=== PATIENT | male | born 1940 | race Caucasian/White ===

== ENCOUNTER 2016-10-26 14:54 | Inpatient (IN) | payer MEDICARE, BC ==
[2016-10-26] MEDS ORDERED: ZOLPIDEM 10 MG TAB PO PRN (18:48)
[2016-10-26] MEDS ORDERED: WARFARIN 2.5 MG TAB PO SCH (19:00)
[2016-10-26 19:44] LABS: Anisocytosis Slight; Basophils % (A) 1 %; CH 28.8; CHCM 31.7; Eosinophils % (A) 1 %; HCT 34.3 % (39.0-53.0); HDW 2.42; HGB 10.8 gm/dL (13.0-17.5); Luc # (Auto) 0.09; Luc % (Auto) 2; Lymphocytes # (A) 0.8 k/uL (1.0-4.8); Lymphocytes % (A) 14 %; MCH 28.7 pg (25.0-35.0); MCHC 31.5 g/dL (31.0-37.0); Mean Platelet Volume 8.9; Monocytes # (A) 0.4 k/uL (0-1.0); Monocytes % (A) 7 %; Neutrophils # (A) 4.6 k/uL (1.3-7.7); Neutrophils % (A) 77 %; RBC 3.77 m/uL (4.30-5.90); RDW 16.1 % (11.5-15.5); WBC (Perox) 6.23
[2016-10-26 19:53] LABS: Calcium 8.7 mg/dL (8.4-10.2); Potassium 3.9 mmol/L (3.5-5.1)
[2016-10-26 19:54] LABS: Prothrombin Time 28.9 sec (9.0-12.0)
[2016-10-26] MEDS ORDERED: CARVEDILOL 6.25 MG TAB PO STA (21:25)
[2016-10-26] MEDS ORDERED: VIT A,C & E-LUTEIN-MINERALS 1 EACH TAB PO ONE (22:11)
[2016-10-26] MEDS: CARVEDILOL 3.125 MG TAB PO SCH (22:25)
[2016-10-27] MEDS: CARVEDILOL 3.125 MG TAB PO SCH (06:24)
[2016-10-27 06:35] LABS: Anisocytosis Slight; Basophils % (A) 0 %; CH 28.7; CHCM 31.9; Eosinophils # (A) 0.1 k/uL (0-0.7); Eosinophils % (A) 1 %; HCT 36.2 % (39.0-53.0); HDW 2.46; HGB 11.5 gm/dL (13.0-17.5); Luc # (Auto) 0.07; Luc % (Auto) 1; Lymphocytes % (A) 14 %; MCH 28.7 pg (25.0-35.0); MCHC 31.8 g/dL (31.0-37.0); MCV 90.4 fL (80.0-100.0); Mean Platelet Volume 9.1; Monocytes # (A) 0.4 k/uL (0-1.0); Monocytes % (A) 6 %; Neutrophils # (A) 5.3 k/uL (1.3-7.7); Neutrophils % (A) 77 %; RBC 4.01 m/uL (4.30-5.90); RDW 16.1 % (11.5-15.5); WBC 6.9 k/uL (3.8-10.6); WBC (Perox) 7.28
[2016-10-27] MEDS ORDERED: DEXTROSE 5% IN WATER 100 ML with AMIODARONE 150 MG IV ONE (06:38)
[2016-10-27 06:40] LABS: INR 3.3 (<1.1); Prothrombin Time 31.6 sec (9.0-12.0)
[2016-10-27 07:03] LABS: Calcium 9.3 mg/dL (8.4-10.2); Potassium 4.5 mmol/L (3.5-5.1)
[2016-10-27] MEDS: AMIODARONE 450 MG in DEXTROSE 5% IN WATER 250 ML IV SCH ×4 (07:27→15:45)
[2016-10-27] MEDS ORDERED: CARVEDILOL 6.25 MG TAB PO SCH (07:30)
[2016-10-27] MEDS ORDERED: ALPRAZolam 0.5 MG TAB PO PRN (08:25)
--- NOTE | 2016-10-27 09:05 | XR ---
EXAMINATION TYPE: XR chest 1V DATE OF EXAM: 10/27/2016 8:59 AM COMPARISON: 07/13/2016 HISTORY: 76-year-old male with shortness of breath TECHNIQUE: Single frontal view of the chest is obtained. FINDINGS: There is moderate cardiomegaly. Diffuse interstitial opacities are noted, relatively similar to prior . No significant pleural effusion seen. Left anterior chest wall AICD generator with right atrial, ri ght ventricular, and coronary sinus leads. IMPRESSION: Similar moderate cardiomegaly. Diffuse interstitial changes appear in part chronic. Correlate for mil d CHF.
[2016-10-27] MEDS ORDERED: FUROSEMIDE 10 MG/ML 2 ML VIAL IV SCH (09:15)
[2016-10-27 10:09] VITALS: TEMP 96.7
--- NOTE | 2016-10-27 10:58 | P.CRDCN ---
History of Present Illness Consult date: 10/27/16 Reason for Consult (text): CHF/fainting spells Chief complaint: passing out and difficulty breathing History of present illness: This is a pleasant 76-year-old gentleman who follows regularly with Dr. Soni in the office. He has a known history of nonischemic cardiomyopathy , severe mitral regurgitation, systolic congestive heart failure, hyperlipidemia , rheumatoid arthritis, hypertension, chronic kidney disease, paroxysmal atrial fibrillation, and prior BiV ICD placement. He was recently admitted to [facility] on 09/19/2016 through 09/29/2016 for nonischemic myopathy and severe mitral regurgitation; is not a surgical candidate. Patient was brought to the emergency department at [facility] by his with complaints of syncope and progressively worsening shortness of breath. Chest x-ray done upon presentation to Dr. Carson showed cardiomegaly with mild congestive changes in the peripheral lungs, patient did undergo computed tomography scan of the head without contrast that showed no acute abnormality and no hemorrhage. Laboratory values were significant for a proBNP of 32,735, most recent BUN 41 and creatinine 1.74 and INR of 3.3. Since arriving to selective care unit, patient has been having runs of ventricular tachycardia treated with ATP and has been started on amiodarone drip. Upon examination this morning, patient is restless and tachypneic. Denies complaints of chest discomfort or palpitations. He does complain of severe shortness of breath and episodes of dizziness. Complaining of orthopnea. 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 -[employer], RECENT DX LT BREAST CANCER,NORMOCYTIC ANEMIA, BRONCHITS, NON SUSTAINED V-TACH.AORTIC STENOSIS.PAST FALLS WAS USING WALKER BUT CURRENTLY STATED WEAK AND PASSING OUT SPELLS History of Any Multi-Drug Resistant Organisms: None Reported Past Surgical History: AICD, Appendectomy, Heart Catheterization, Pacemaker Additional Past Surgical History / Comment(s): 07-13-15 LT SIMPLE MASECTOMY/ SENTINEL INJECTION AND BIOPSY, LT HIP REPLACMENT, CYST ON HEAD/ARM/ NOSE REMOVED Past Anesthesia/Blood Transfusion Reactions: No Reported Reaction Type of Cardiac Device: AICD Device Placement Date:: 2012 Past Psychological History: No Psychological Hx Reported Smoking Status: Never smoker Past Alcohol Use History: None Reported Past Drug Use History: None Reported - Past Family History Mother Family Medical History: Dementia, Diabetes Mellitus Additional Family Medical History / Comment(s): HEART PROBLEMS Father Family Medical History: Cancer Additional Family Medical History / Comment(s): ? STOMACH CANCER Medications and Allergies Home Medications Medication Instructions Recorded Confirmed Type Vit C/E/Zn/Coppr/Lutein/Zeaxan 1 cap PO BID 05/30/16 10/26/16 History [Preservision Areds 2 Softgel] Digoxin [Lanoxin] 62.5 mcg PO DAILY 07/13/16 10/26/16 History Ergocalciferol [Vitamin D2] 50,000 unit PO Q30D 07/13/16 10/26/16 History Bumetanide [BUMEX] 2 mg PO DAILY 10/26/16 10/26/16 History Cyanocobalamin [Vitamin B-12] 500 mcg PO DAILY 10/26/16 10/26/16 History Ferrous Sulfate [Feosol] 325 mg PO BID 10/26/16 10/26/16 History Potassium Chloride [Klor-Con 20] 20 meq PO DAILY 10/26/16 10/26/16 History Warfarin [Coumadin] 2.5 mg PO HS 10/26/16 10/26/16 History Allergies Allergy/AdvReac Type Severity Reaction Status Date / Time No Known Allergies Allergy Verified 10/26/16 17:36 Physical Exam Vitals: Vital Signs Temp Pulse Resp BP BP Pulse Ox 10/27/16 08:00 91 20 10/27/16 07:53 91 20 94/70 96 10/27/16 07:38 95 20 96/68 98 10/27/16 07:23 93 20 95/63 94 L 10/27/16 07:08 93 22 93/71 97 10/27/16 05:24 106 H 24 101/74 94 L 10/27/16 04:00 97 F L 94 18 97/76 93 L 10/27/16 00:00 105 H 18 102/51 94 L 10/26/16 20:00 97.1 F L 105 H 18 92/62 94/53 96 10/26/16 17:00 97.4 F L 106 H 12 110/64 97 Intake and Output 10/26/16 10/27/16 10/27/16 22:59 06:59 14:59 Intake Total 120 Output Total 50 150 Balance 70 -150 Intake: Oral 120 Output: Urine 50 150 Other: # Voids 1 Weight 59.5 kg 60.1 kg PHYSICAL EXAMINATION: HEENT: Head is atraumatic, normocephalic. Pupils equal, round. Neck is supple. There is elevated jugular venous pressure. HEART EXAMINATION: Heart sounds regular, S1 and S2 systolic ejection murmur heard. CHEST EXAMINATION: Lungs reveal diminished air entry with crackles to bilateral lower lobes. Patient is tachypneic. No chest wall tenderness is noted on palpation or with deep breathing. ABDOMEN: Soft, nontender. Bowel sounds are heard. No organomegaly noted. EXTREMITIES: 2+ peripheral pulses with no evidence of peripheral edema and no calf tenderness noted. NEUROLOGIC patient is awake, alert, restless and oriented x3. . Results 10/27/16 06:22 10/27/16 06:22 Coagulation 10/26/16 10/27/16 Range/Units 19:14 06:22 PT 28.9 H 31.6 H (9.0-12.0) sec CBC 10/26/16 10/27/16 Range/Units 19:14 06:22 WBC 6.0 6.9 (3.8-10.6) k/uL RBC 3.77 L 4.01 L (4.30-5.90) m/uL Hgb 10.8 L 11.5 L (13.0-17.5) gm/dL Hct 34.3 L 36.2 L (39.0-53.0) % Plt Count 130 L 129 L (150-450) k/uL Comprehensive Metabolic Panel 10/26/16 10/27/16 Range/Units 19:14 06:22 Sodium 139 142 (137-145) mmol/L Potassium 3.9 4.5 (3.5-5.1) mmol/L Chloride 105 107 (98-107) mmol/L Carbon Dioxide 24 24 (22-30) mmol/L BUN 40 H 41 H (9-20) mg/dL Creatinine 1.71 H 1.74 H (0.66-1.25) mg/dL Glucose 198 H 111 H (74-99) mg/dL Calcium 8.7 9.3 (8.4-10.2) mg/dL Current Medications Generic Name Dose Route Start Last Admin Trade Name Freq PRN Reason Stop Dose Admin Alprazolam 0.5 mg 10/27/16 08:25 10/27/16 08:43 Xanax PO 0.5 mg TID PRN Administration Anxiety Carvedilol 3.125 mg 10/26/16 22:15 10/27/16 06:24 Coreg PO 3.125 mg BID-W/MEALS LIZZY Administration Amiodarone HCl 450 mg/ 259 mls @ 34.53 mls/hr 10/27/16 06:45 10/27/16 07:27 Dextrose/Water IV 10/28/16 06:38 1 mg/min .Q7H31M LIZZY 34.53 mls/hr Protocol Administration 1 MG/MIN Multivitamins/Minerals 1 each 10/27/16 12:00 Ivite PO DAILY@1200 LIZZY Warfarin Sodium 2.5 mg 10/26/16 19:00 10/26/16 21:23 Coumadin PO 2.5 mg DAILY@1800 LIZZY Administration Zolpidem Tartrate 10 mg 10/26/16 18:48 10/26/16 22:27 Ambien PO 10 mg HS PRN Administration Insomnia Intake and Output 10/26/16 10/27/16 10/27/16 22:59 06:59 14:59 Intake Total 120 Output Total 50 150 Balance 70 -150 Intake: Oral 120 Output: Urine 50 150 Other: # Voids 1 Weight 59.5 kg 60.1 kg 10/27/16 06:22 10/27/16 06:22 EKG Interpretations (text) Biventricular paced rhythm Assessment and Plan Plan: Assessment and plan #1 acute on chronic systolic congestive heart failure, last known ejection fraction less than 20% #2 nonischemic cardiomyopathy status post ICD placement #3 paroxysmal atrial fibrillation, on Coumadin INR 3.3 #4 chronic renal insufficiency #5 severe mitral regurgitation, not a surgical candidate #6 anemia #7 syncope #8 hypertension currently having hypotension From cardiac standpoint, we will add low-dose IV Lasix 20 mg every 12 hours as patient will require gentle diuresis. Will continue amiodarone drip. We will have ICD interrogated to look for arrhythmias that may cause syncope. Ultimately , the patient has a very poor prognosis. We recommend comfort care for this patient. Further recommendations to follow. FISH CONSERVATIONIST note has been reviewed, I agree with a documented findings and plan of care. Patient was seen and examined.
[2016-10-27 11:29] VITALS: BP 100/68; PULSE 80; RESP 20
[2016-10-27] MEDS ORDERED: VIT A,C & E-LUTEIN-MINERALS 1 EACH TAB PO SCH (12:00)
[2016-10-27 14:17] VITALS: BMI 21.4
[2016-10-27] MEDS ORDERED: DRY MOUTH SPRAY 44.3 SPRAY/44.3 ML SPRAY MUCOUS MEM PRN (15:13)
[2016-10-27] MEDS ORDERED: ARTIFICIAL TEARS-HYPROMELLOSE DROPS 15 ML BTL BOTH EYES PRN (15:13)
--- NOTE | 2016-10-27 15:20 | P.HPIM ---
History of Present Illness H&P Date: 10/27/16 Chief Complaint: syncope 76-year-old gentleman with severe ischemic cardiomyopathy, aortic stenosis and aortic regurgitation who is not a surgical candidate comes in the hospital with multiple episodes of syncope. Patient also was noted to have an elevated BNP of 32,009 admission. Patient was noted to have pulmonary vessel congestion. Patient was evaluated at [facility] for a TAB R versus open aortic valve replacement and patient was not a candidate. Initial chest x-ray was consistent with the primary vessel condition. Patient was noted to have an elevated creatinine on admission. Patient was transferred from [facility] as he presented there initially with similar complaints. Patient's family was at bedside verbalized understanding the patient's condition is critical and that they're only comfort measures at this time. Patient was given a dose of 40 mg IV Lasix this morning by me over the telephone him as it was reported the patient was having some difficulty breathing. Currently states that he he has difficulty breathing, denies having chest pain. Patient was also noted to have torsades overnight patient was started on amiodarone drip. 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 -[employer]TRON[employer], RECENT DX LT BREAST CANCER,NORMOCYTIC ANEMIA, BRONCHITS, NON SUSTAINED V-TACH.AORTIC STENOSIS.PAST FALLS WAS USING WALKER BUT CURRENTLY STATED WEAK AND PASSING OUT SPELLS History of Any Multi-Drug Resistant Organisms: None Reported Past Surgical History: AICD, Appendectomy, Heart Catheterization, Pacemaker Additional Past Surgical History / Comment(s): 07-13-15 LT SIMPLE MASECTOMY/ SENTINEL INJECTION AND BIOPSY, LT HIP REPLACMENT, CYST ON HEAD/ARM/ NOSE REMOVED Past Anesthesia/Blood Transfusion Reactions: No Reported Reaction Type of Cardiac Device: AICD Device Placement Date:: 2012 Past Psychological History: No Psychological Hx Reported Smoking Status: Never smoker Past Alcohol Use History: None Reported Past Drug Use History: None Reported - Past Family History Mother Family Medical History: Dementia, Diabetes Mellitus Additional Family Medical History / Comment(s): HEART PROBLEMS Father Family Medical History: Cancer Additional Family Medical History / Comment(s): ? STOMACH CANCER Medications and Allergies Home Medications Medication Instructions Recorded Confirmed Type Vit C/E/Zn/Coppr/Lutein/Zeaxan 1 cap PO BID 05/30/16 10/26/16 History [Preservision Areds 2 Softgel] Digoxin [Lanoxin] 62.5 mcg PO DAILY 07/13/16 10/26/16 History Ergocalciferol [Vitamin D2] 50,000 unit PO Q30D 07/13/16 10/26/16 History Bumetanide [BUMEX] 2 mg PO DAILY 10/26/16 10/26/16 History Cyanocobalamin [Vitamin B-12] 500 mcg PO DAILY 10/26/16 10/26/16 History Ferrous Sulfate [Feosol] 325 mg PO BID 10/26/16 10/26/16 History Potassium Chloride [Klor-Con 20] 20 meq PO DAILY 10/26/16 10/26/16 History Warfarin [Coumadin] 2.5 mg PO HS 10/26/16 10/26/16 History Allergies Allergy/AdvReac Type Severity Reaction Status Date / Time No Known Allergies Allergy Verified 10/26/16 17:36 Physical Exam Vitals: Vital Signs Temp Pulse Resp BP BP Pulse Ox 10/27/16 11:30 20 10/27/16 11:25 80 20 100/68 95 10/27/16 10:09 96.7 F L 90 18 91/67 92 L 10/27/16 08:00 91 20 10/27/16 07:53 91 20 94/70 96 10/27/16 07:38 95 20 96/68 98 10/27/16 07:23 93 20 95/63 94 L 10/27/16 07:08 93 22 93/71 97 10/27/16 05:24 106 H 24 101/74 94 L 10/27/16 04:00 97 F L 94 18 97/76 93 L 10/27/16 00:00 105 H 18 102/51 94 L 10/26/16 20:00 97.1 F L 105 H 18 92/62 94/53 96 10/26/16 17:00 97.4 F L 106 H 12 110/64 97 Intake and Output 10/27/16 10/27/16 10/27/16 06:59 14:59 22:59 Intake Total 568.907 Output Total 150 300 Balance -150 268.907 Intake: IV 240 Amiodarone 450 mg In 240 Dextrose 5% in Water 250 ml @ 1 MG/MIN 34.53 mls/ hr IV .Q7H31M LIZZY Rx#: [id number] Intake, IV Titration 208.907 Amount Amiodarone 450 mg In 208.907 Dextrose 5% in Water 250 ml @ 1 MG/MIN 34.53 mls/ hr IV .Q7H31M LIZZY Rx#: [id number] Oral 120 Output: Urine 150 300 Other: # Bowel Movements 0 Weight 60.1 kg 60.1 kg Patient Weight 10/28/16 06:59 Weight 60.1 kg Gen. appearance alert oriented 3 appears to be in mild respiratory distress Lungs crackles at the bases diminished breath sounds over good air movement Heart irregularly irregular a loud systolic murmurs appreciated predominantly at the aortic area Abdomen is soft nontender no organomegaly Activities no edema appreciated Neuro no focal motor or sensory deficits appreciated. Results CBC & Chem 7: 10/27/16 06:22 10/27/16 06:22 Labs: Abnormal Lab Results - Last 24 Hours (Table) 10/26/16 10/26/16 10/26/16 Range/Units 19:14 19:14 19:14 RBC 3.77 L (4.30-5.90) m/uL Hgb 10.8 L (13.0-17.5) gm/dL Hct 34.3 L (39.0-53.0) % RDW 16.1 H (11.5-15.5) % Plt Count 130 L (150-450) k/uL Lymphocytes # 0.8 L (1.0-4.8) k/uL PT 28.9 H (9.0-12.0) sec BUN 40 H (9-20) mg/dL Creatinine 1.71 H (0.66-1.25) mg/dL Glucose 198 H (74-99) mg/dL 10/27/16 10/27/16 10/27/16 Range/Units 06:22 06:22 06:22 RBC 4.01 L (4.30-5.90) m/uL Hgb 11.5 L (13.0-17.5) gm/dL Hct 36.2 L (39.0-53.0) % RDW 16.1 H (11.5-15.5) % Plt Count 129 L (150-450) k/uL Lymphocytes # (1.0-4.8) k/uL PT 31.6 H (9.0-12.0) sec BUN 41 H (9-20) mg/dL Creatinine 1.74 H (0.66-1.25) mg/dL Glucose 111 H (74-99) mg/dL Thrombosis Risk Factor Assmnt - Choose All That Apply Any of the Below Risk Factors Present?: Yes Each Factor Represents 1 point: Abnormal pulmonary function (COPD) Other Risk Factors: No Other congenital or acquired thrombophilia - If yes, enter type in comment: No Thrombosis Risk Factor Assessment Total Risk Factor Score: 1 Thrombosis Risk Factor Assessment Level: Low Risk Assessment and Plan Plan: #1 syncope secondary to critical aortic stenosis #2 sustained ventricular tachycardia #3 decompensated systolic heart failure #4 torsades #5 acute kidney injury on CK D stage III secondary to #1 #6 anemia #7 hypertension history of #8 nonischemic cardiomyopathy status post AICD placement #9 chronic atrial fibrillation on anticoagulation. Plan After discussion with the family regarding patient's critical condition and that there are no further options to treat the patient comfort measures were requested by the family and the patient. Patient initially stated to wanting to go home however patient is critically ill hence we'll monitor the patient at least for the next 24 hours. A hospice consult will replace. Consents were changed to comfort measures only. Medication will be discontinued. And the defibrillator will also be discontinued.
[2016-10-27] MEDS ORDERED: MORPHINE SULFATE (100 MG/2 ML) 100 MG in SODIUM CHLORIDE 0.9% 100 ML IV SCH (15:30)
[2016-10-27] MEDS ORDERED: SCOPOLAMINE 1.5MG/72HR PATCH TRANSDERM PRN (16:00)
[2016-10-27] MEDS: LORazepam 2 MG/ML SYRINGE IV PRN (17:02)
[2016-10-28 07:57] LABS: INR 3.5 (<1.1); Prothrombin Time 34.4 sec (9.0-12.0)
[2016-10-28 08:18] LABS: Calcium 9.2 mg/dL (8.4-10.2); Potassium 4.8 mmol/L (3.5-5.1)
--- NOTE | 2016-10-28 15:42 | P.PN ---
Subjective 76-year-old gentleman with severe ischemic cardiomyopathy, aortic stenosis and aortic regurgitation who is not a surgical candidate comes in the hospital with multiple episodes of syncope. Patient also was noted to have an elevated BNP of 32,009 admission. Patient was noted to have pulmonary vessel congestion. Patient was evaluated at [facility] for a TAB R versus open aortic valve replacement and patient was not a candidate. Initial chest x-ray was consistent with the primary vessel condition. Patient was noted to have an elevated creatinine on admission. Patient was transferred from [facility] as he presented there initially with similar complaints. Patient's family was at bedside verbalized understanding the patient's condition is critical and that they're only comfort measures at this time. Patient was given a dose of 40 mg IV Lasix this morning by me over the telephone him as it was reported the patient was having some difficulty breathing. Currently states that he he has difficulty breathing, denies having chest pain. Patient was also noted to have torsades overnight patient was started on amiodarone drip. 10/28/2016 Patient is currently maintained on comfort measures only as goals of care. Family is at bedside. S is currently maintained on 2 mg of IV morphine. Apparently is arousable however was sleeping during time of my examination Objective - Vital Signs Vital signs: Vital Signs Temp 96.7 F L 10/27/16 10:09 Pulse 80 10/27/16 11:25 Resp 20 10/27/16 11:30 BP 100/68 10/27/16 11:25 Pulse Ox 96 10/28/16 10:33 Intake & Output 10/27/16 10/28/16 10/28/16 18:59 06:59 18:59 Intake Total 568.907 3 Output Total 300 200 Balance 268.907 3 -200 Weight 60.1 kg Intake: IV 240 Amiodarone 450 mg In 240 Dextrose 5% in Water 250 ml @ 1 MG/MIN 34.53 mls/ hr IV .Q7H31M LIZZY Rx#: [id number] Intake, IV Titration 208.907 3 Amount Amiodarone 450 mg In 208.907 Dextrose 5% in Water 250 ml @ 1 MG/MIN 34.53 mls/ hr IV .Q7H31M LIZZY Rx#: [id number] Morphine Sulfate 100 mg 3 In Sodium Chloride 0.9% 100 ml @ 1 MG/HR 1.02 mls /hr IV .Q24H [facility] Rx#: [id number] Oral 120 Output: Urine 300 200 Other: Voiding Method Urinal # Voids 2 # Bowel Movements 0 - Exam Gen. appearance slightly lethargic Heart S1-S2 heard 4/6 systolic murmur appreciated predominantly at the aortic area radiating to the carotids in the posterior chest Lungs diminished breath sounds faint crackles appreciated Abdomen is soft nontender no organomegaly Neuro is deferred - Labs CBC & Chem 7: 10/27/16 06:22 10/28/16 07:24 Labs: Abnormal Lab Results - Last 24 Hours (Table) 10/28/16 10/28/16 Range/Units 07:24 07:24 PT 34.4 H (9.0-12.0) sec Carbon Dioxide 21 L (22-30) mmol/L BUN 51 H (9-20) mg/dL Creatinine 2.00 H (0.66-1.25) mg/dL Assessment and Plan Plan: #1 syncope secondary to critical aortic stenosis #2 sustained ventricular tachycardia #3 decompensated systolic heart failure #4 torsades #5 acute kidney injury on CK D stage III secondary to #1 #6 anemia #7 hypertension history of #8 nonischemic cardiomyopathy status post AICD placement #9 chronic atrial fibrillation on anticoagulation. Plan Current goals of care comfort measures only. Patient is currently maintained on IV morphine to continue. Patient's family would like him to be transferred to a hospice facility closer to home in [facility]
[2016-10-28] MEDS: LORazepam 2 MG/ML SYRINGE IV PRN (20:32)
--- NOTE | 2016-11-09 06:38 | P.DS ---
Providers Date of admission: 10/26/16 17:00 Attending physician: Nicolas Watkins MD Consults: 10/26/16 18:44 Consult Physician Routine Consulting Provider: Nick Soni Consult Reason/Comments: CHF/fainting spells Do you want consulting provider notified?: Yes Primary care physician: [facility] Course: #1 syncope secondary to critical aortic stenosis #2 sustained ventricular tachycardia #3 decompensated systolic heart failure #4 torsades #5 acute kidney injury on CK D stage III secondary to #1 #6 anemia #7 hypertension history of #8 nonischemic cardiomyopathy status post AICD placement #9 chronic atrial fibrillation on anticoagulation. Goals of care were changed to comfort measures only, as pt was not a candidate for any interventions. Family was at bedside. Family verbalized to understand the prognosis. Patient , likely sec to decompensated heart failure complicated by critical Aortic stenosis. Plan - Discharge Summary Discharge Medication List Vit C/E/Zn/Coppr/Lutein/Zeaxan [Preservision Areds 2 Softgel] 1 cap PO BID 05/30 [History] Digoxin [Lanoxin] 62.5 mcg PO DAILY 07/13/16 [History] Ergocalciferol [Vitamin D2] 50,000 unit PO Q30D 07/13/16 [History] Spironolactone [Aldactone] 12.5 mg PO DAILY #30 tab 07/15/16 [Rx] Bumetanide [BUMEX] 2 mg PO DAILY 10/26/16 [History] Cyanocobalamin [Vitamin B-12] 500 mcg PO DAILY 10/26/16 [History] Ferrous Sulfate [Feosol] 325 mg PO BID 10/26/16 [History] Potassium Chloride [Klor-Con 20] 20 meq PO DAILY 10/26/16 [History] Warfarin [Coumadin] 2.5 mg PO HS 10/26/16 [History] Patient Instructions/Handouts: Warfarin (By mouth) Discharge Disposition: - Preliminary Cause of Preliminary Cause of : Decompensated heart failure and critical aortic stenosis.
== END 2016-10-29 05:28 | disposition expired | DRG 306 ==
LOC: 6SEL 17:00 → 5ONC 10-27 16:34
PROVIDERS: ADMIT Internal Medicine; ATTEND Internal Medicine
DX: I35.2 Nonrheumatic aortic (valve) stenosis with insufficiency (principal); I50.23 Acute on chronic systolic (congestive) heart failure; N17.9 Acute kidney failure, unspecified; I47.2 Ventricular tachycardia; N18.3 Chronic kidney disease, stage 3 (moderate); I13.0 Hypertensive heart and chronic kidney disease with heart failure and stage 1 through stage 4 chronic kidney disease, or unspecified chronic kidney disease; D64.9 Anemia, unspecified; I34.0 Nonrheumatic mitral (valve) insufficiency; E78.5 Hyperlipidemia, unspecified; I25.2 Old myocardial infarction; I25.5 Ischemic cardiomyopathy; I48.0 Paroxysmal atrial fibrillation; I48.2 Chronic atrial fibrillation; M06.9 Rheumatoid arthritis, unspecified; Z79.01 Long term (current) use of anticoagulants; Z95.810 Presence of automatic (implantable) cardiac defibrillator
CPT/HCPCS: 71010; 80048; 83735; 85025; 85610